=== PATIENT | male | born 1970 | race Hispanic/Latino ===

== ENCOUNTER 2020-07-19 07:31 | Emergency (ER) | payer SELFPAY ==
[2020-07-19] MEDS ORDERED: SODIUM CHLORIDE 0.9% 1000 ML 1,000 ML IV ONE (09:00)
[2020-07-19] MEDS ORDERED: ONDANSETRON 4 MG/2 ML INJ IV ONE (09:00)
--- NOTE | 2020-07-19 09:04 | Emergency Department Report ---
ED General Adult HPI - General Chief complaint: Nausea/Vomiting/Diarrhea Stated complaint: SICK Time Seen by Provider: 07/19/20 08:52 Source: patient Mode of arrival: Ambulatory Limitations: No Limitations - History of Present Illness Initial comments: Patient is 50 years old male with no significant past medical history except for high blood pressure. Patient presented to the ER complaining of generalized weakness, nausea, vomiting and diarrhea for the last 3 days. Patient also complaining of cough runny nose and congestion. Patient denied any contact with COVID-19 patient. Patient denied fever but stated that he is having chills. -: days(s) - Related Data Previous Rx's Medication Instructions Recorded Last Taken Type Acetaminophen/Codeine [Tylenol #3] 1 tab PO Q6H PRN #20 tab 04/26/15 Unknown Rx Clindamycin [Clindamycin CAP] 300 mg PO Q6HR #80 capsule 04/26/15 Unknown Rx Ibuprofen [Motrin] 600 mg PO Q8H PRN #50 tablet 04/26/15 Unknown Rx Penicillin Vk [Veetids TAB] 500 mg PO QID #40 tablet 04/26/15 Unknown Rx Acetaminophen/Codeine [Tylenol #3] 1 tab PO Q6H PRN #20 tab 06/08/15 Unknown Rx Clindamycin [Clindamycin CAP] 300 mg PO Q6H 10 Days capsule 06/08/15 Unknown Rx Ibuprofen [Motrin 600 MG tab] 600 mg PO Q8H PRN #30 tablet 06/08/15 Unknown Rx Penicillin Vk [Veetids TAB] 500 mg PO QID 10 Days tablet 06/08/15 Unknown Rx Allergies Allergy/AdvReac Type Severity Reaction Status Date / Time clindamycin Allergy Unknown Verified 07/19/20 07:34 ED Review of Systems ROS: Stated complaint: SICK Other details as noted in HPI Comment: All other systems reviewed and negative Constitutional: chills. denies: fever Respiratory: cough. denies: orthopnea, shortness of breath, SOB with exertion, SOB at rest, stridor, wheezing Cardiovascular: denies: chest pain, palpitations Gastrointestinal: nausea, vomiting, diarrhea. denies: abdominal pain, constipation, hematemesis, melena, hematochezia Musculoskeletal: denies: back pain Neurological: weakness. denies: headache, numbness, paresthesias, confusion, abnormal gait ED Past Medical Hx - Past Medical History Hx Hypertension: Yes Hx Psychiatric Treatment: Yes - Surgical History Additional Surgical History: TONSILLECTOMY - Social History Smoking Status: Current Every Day Smoker Substance Use Type: None - Medications Home Medications: Home Medications Medication Instructions Recorded Confirmed Last Taken Type Acetaminophen/Codeine [Tylenol #3] 1 tab PO Q6H PRN #20 tab 04/26/15 Unknown Rx Clindamycin [Clindamycin CAP] 300 mg PO Q6HR #80 capsule 04/26/15 Unknown Rx Ibuprofen [Motrin] 600 mg PO Q8H PRN #50 tablet 04/26/15 Unknown Rx Penicillin Vk [Veetids TAB] 500 mg PO QID #40 tablet 04/26/15 Unknown Rx Acetaminophen/Codeine [Tylenol #3] 1 tab PO Q6H PRN #20 tab 06/08/15 Unknown Rx Clindamycin [Clindamycin CAP] 300 mg PO Q6H 10 Days capsule 06/08/15 Unknown Rx Ibuprofen [Motrin 600 MG tab] 600 mg PO Q8H PRN #30 tablet 06/08/15 Unknown Rx Penicillin Vk [Veetids TAB] 500 mg PO QID 10 Days tablet 06/08/15 Unknown Rx ED Physical Exam - General Limitations: No Limitations General appearance: alert, in no apparent distress - Head Head exam: Present: atraumatic, normocephalic, normal inspection - ENT ENT exam: Present: mucous membranes dry - Respiratory Respiratory exam: Present: normal lung sounds bilaterally - Cardiovascular Cardiovascular Exam: Present: regular rate, normal rhythm, normal heart sounds - GI/Abdominal GI/Abdominal exam: Present: soft, normal bowel sounds. Absent: distended, tenderness, guarding, rebound, rigid, mass, bruit, pulsatile mass, hernia - Extremities Exam Extremities exam: Present: normal inspection, full ROM - Back Exam Back exam: Present: normal inspection, full ROM. Absent: CVA tenderness (R), CVA tenderness (L) - Neurological Exam Neurological exam: Present: alert, oriented X3, CN II-XII intact - Psychiatric Psychiatric exam: Present: normal mood - Skin Skin exam: Present: warm, dry, intact ED Course Vital Signs 07/19/20 07:37 Temperature 97.9 F Pulse Rate 93 H Respiratory 18 Rate Blood Pressure 167/108 O2 Sat by Pulse 97 Oximetry ED Medical Decision Making - Lab Data Result diagrams: 07/19/20 Unknown 07/19/20 Unknown - Radiology Data Radiology results: report reviewed - Medical Decision Making Patient is 50 years old male with no significant past medical history except for high blood pressure. Patient presented to the ER complaining of generalized weakness, nausea, vomiting and diarrhea for the last 3 days. Patient also complaining of cough runny nose and congestion. Patient denied any contact with COVID-19 patient. Patient denied fever but stated that he is having chills. Patient received normal saline and Zofran. Patient stated that he is feeling much better. No vomiting observed in the ER. Labs reviewed and is unremarkable. Chest x-ray is negative for acute finding. Patient symptoms consistent with viral syndrome and given this pandemic time of COVID-19 patient advised to follow-up with his primary doctor or go to the health department or local resources for COVID-19 testing. Patient also advised to return to the ER if he develop any new symptoms. Critical care attestation.: If time is entered above; I have spent that time in minutes in the direct care of this critically ill patient, excluding procedure time. ED Disposition Clinical Impression: Viral syndrome, Dehydration, Acute nausea with nonbilious vomiting Disposition: DC-01 TO HOME OR SELFCARE Is pt being admited?: No Condition: Stable Instructions: Nausea and Vomiting, Adult Referrals: PRIMARY CARE,MD [Primary Care Provider] - 3-5 Days
--- NOTE | 2020-07-19 09:36 | XRay Report ---
CHEST 1 VIEW INDICATION: cough. COMPARISON: None. FINDINGS: Support devices: None. Heart: Normal. Lungs/Pleura: No acute pulmonary or pleural findings. IMPRESSION: 1. No acute findings. Signer Name: Benjamin Mckeon MD Signed: 07/19/2020 9:32 AM Workstation Name: [id number]
[2020-07-19 10:07] LABS: Basophils % (Auto) 0.3 % (0.0-1.8); Eosinophils % (Auto) 0.1 % (0.0-4.3); Hematocrit 47.2 % (35.5-45.6); Hemoglobin 15.9 gm/dl (11.8-15.2); Lymphocytes # (Auto) 1.3 K/mm3 (1.2-5.4); Lymphocytes % (Auto) 13.1 % (13.4-35.0); Mean Corpuscular HGB Conc 34 % (32-34); Mean Corpuscular Volume 98 fl (84-94); Platelet Count 204 K/mm3 (140-440); Red Blood Count 4.83 M/mm3 (3.65-5.03); Red Cell Distribution Width 14.5 % (13.2-15.2)
[2020-07-19 10:32] LABS: Alanine Aminotransferase 39 units/L (7-56); Albumin 4.7 g/dL (3.9-5); Blood Urea Nitrogen 11 mg/dL (9-20); Calcium 9.3 mg/dL (8.4-10.2); Hemolysis Index 18
[2020-07-19 10:43] LABS: BUN/Creatinine Ratio 18; Bilirubin,Direct < 0.2 mg/dL (0-0.2)
[2020-07-19 13:10] VITALS: BP 154/100
== END 2020-07-19 13:10 | disposition home or self-care (01) ==
LOC: ED 07:31
DX: E86.0 Dehydration (principal); B34.9 Viral infection, unspecified; R11.2 Nausea with vomiting, unspecified; I10 Essential (primary) hypertension; F17.200 Nicotine dependence, unspecified, uncomplicated; Z88.8 Allergy status to other drugs, medicaments and biological substances; Z79.899 Other long term (current) drug therapy; Z90.49 Acquired absence of other specified parts of digestive tract
CPT/HCPCS: 36415; 71045; 80048; 80076; 83690; 85025; 96361; 96374; 99284; J2405

== ENCOUNTER 2020-07-27 18:18 | Emergency (ER) | payer SELFPAY ==
--- NOTE | 2020-07-27 18:40 | Event Note ---
ED Screening Note Date of service: 07/27/20 Time: 18:39 ED Screening Note: This 50-year-old male presents the ED complaining of nausea and vomiting x1 week. Patient states he has not been able to eat or drink anything past 2 days. He denies abdominal pain Past medical history: Hypertension, hypoglycemia This initial assessment/diagnostic orders/clinical plan/treatment(s) is/are subject to change based on patients health status, clinical progression and re- assessment by fellow clinical providers in the ED. Further treatment and workup at subsequent clinical providers discretion. Patient/guardian urged not to elope from the ED as their condition may be serious if not clinically assessed and managed. Initial orders include: CBC, CMP, lipase
[2020-07-27 19:09] LABS: Basophils % (Auto) 0.4 % (0.0-1.8); Eosinophils # (Auto) 0.1 K/mm3 (0.0-0.4); Eosinophils % (Auto) 1.1 % (0.0-4.3); Hematocrit 48.6 % (35.5-45.6); Hemoglobin 16.2 gm/dl (11.8-15.2); Lymphocytes # (Auto) 3.2 K/mm3 (1.2-5.4); Lymphocytes % (Auto) 30.1 % (13.4-35.0); Mean Corpuscular HGB Conc 33 % (32-34); Mean Corpuscular Volume 99 fl (84-94); Monocytes # (Auto) 1.1 K/mm3 (0.0-0.8); Monocytes % (Auto) 10.6 % (0.0-7.3); Platelet Count 180 K/mm3 (140-440); Red Blood Count 4.91 M/mm3 (3.65-5.03); Red Cell Distribution Width 14.3 % (13.2-15.2)
[2020-07-27 19:14] LABS: Alanine Aminotransferase 17 units/L (7-56); Albumin 4.8 g/dL (3.9-5); Blood Urea Nitrogen 7 mg/dL (9-20); Calcium 9.2 mg/dL (8.4-10.2); Hemolysis Index 19
[2020-07-27 19:20] LABS: BUN/Creatinine Ratio 12
[2020-07-27] MEDS ORDERED: ONDANSETRON 4 MG ODT TAB PO ONE (19:23)
[2020-07-27] MEDS ORDERED: FAMOTIDINE 20 MG TAB PO ONE (19:23)
[2020-07-27 19:24] LABS: Bacteria,Urine 1+ /HPF (Negative); Bilirubin,Urine NEG (Negative); Blood,Urine NEG (Negative); Color,Urine Colorless (Yellow); Protein,Urine <15 mg/dL mg/dL (Negative); Urobilinogen,Urine < 2.0 mg/dL (<2.0)
[2020-07-27 19:27] LABS: WBC,Urine < 1.0 /HPF (0.0-6.0)
[2020-07-27] MEDS ORDERED: SODIUM CHLORIDE 0.9% 1000 ML 1,000 ML IV ONE (19:42)
[2020-07-27] MEDS ORDERED: FAMOTIDINE 20 MG/2 ML INJ IV ONE (19:42)
[2020-07-27] MEDS ORDERED: ONDANSETRON 4 MG/2 ML INJ IV ONE (19:42)
--- NOTE | 2020-07-27 20:58 | Emergency Department Report ---
ED N/V/D HPI - General Chief complaint: Nausea/Vomiting/Diarrhea Stated complaint: FLU SYMPTOMS Source: patient Mode of arrival: Ambulatory Limitations: No Limitations - History of Present Illness Initial comments: Patient is a 50 yo WM with a h/o HTN who presents to the ED with c/o acute onset persistent intermittent nausea, vomiting, diarrhea and mild diffuse abdominal pain for the last 1 week. Patient states that he has not been able to keep anything down especially in the last 2 days. Patient states that these symptoms have been persistent and worse in the last 12 hours. Patient states that he has had upto 4 episodes of nausea, vomiting and diarrhea in the last 8 hours. Patient denies dyspnea, chest pain, cough, sore throat, dysuria, hematemesis, hemoptysis, change in vision, syncope, urinary urgency and frequency, fever and hills or testicular pain and headache MD complaint: nausea, vomiting, diarrhea, abdominal pain -: Sudden, week(s) (1) Description of Vomiting: food contents Description of Diarrhea: water Associated Abdominal Pain: Yes (mildly due to vomiting) Location: diffuse Radiation: none Severity: moderate Pain Scale: 1 Quality: aching, dull Consistency: intermittent Improves with: none Worsens with: eating, vomiting Context: possible food poisoning Associated Symptoms: denies other symptoms, nausea/vomiting. denies: myalgias, chest pain, cough, diaphoresis, fever/chills, headaches, loss of appetite, malaise, rash, dysuria, shortness of breath, syncope - Related Data Previous Rx's Medication Instructions Recorded Last Taken Type Acetaminophen/Codeine [Tylenol #3] 1 tab PO Q6H PRN #20 tab 04/26/15 Unknown Rx Clindamycin [Clindamycin CAP] 300 mg PO Q6HR #80 capsule 04/26/15 Unknown Rx Ibuprofen [Motrin] 600 mg PO Q8H PRN #50 tablet 04/26/15 Unknown Rx Penicillin Vk [Veetids TAB] 500 mg PO QID #40 tablet 04/26/15 Unknown Rx Acetaminophen/Codeine [Tylenol #3] 1 tab PO Q6H PRN #20 tab 06/08/15 Unknown Rx Clindamycin [Clindamycin CAP] 300 mg PO Q6H 10 Days capsule 06/08/15 Unknown Rx Ibuprofen [Motrin 600 MG tab] 600 mg PO Q8H PRN #30 tablet 06/08/15 Unknown Rx Penicillin Vk [Veetids TAB] 500 mg PO QID 10 Days tablet 06/08/15 Unknown Rx lisinopriL [Zestril TAB] 40 mg PO QDAY #30 tablet 07/19/20 Unknown Rx Dicyclomine [Bentyl] 20 mg PO Q6H PRN #24 tablet 07/27/20 Unknown Rx Famotidine [Pepcid] 20 mg PO BID #30 tablet 07/27/20 Unknown Rx Ondansetron [Zofran ODT TAB] 4 mg PO Q6HR PRN #20 tab.rapdis 07/27/20 Unknown Rx Allergies Allergy/AdvReac Type Severity Reaction Status Date / Time clindamycin Allergy Unknown Verified 07/27/20 18:33 ED Review of Systems ROS: Stated complaint: FLU SYMPTOMS Other details as noted in HPI Constitutional: denies: chills, fever Eyes: denies: eye pain, eye discharge, vision change ENT: denies: ear pain, throat pain Respiratory: denies: cough, shortness of breath, wheezing Cardiovascular: denies: chest pain, palpitations Endocrine: no symptoms reported Gastrointestinal: abdominal pain, nausea, vomiting, diarrhea Genitourinary: denies: urgency, dysuria Musculoskeletal: denies: back pain, joint swelling, arthralgia Skin: denies: rash, lesions Neurological: denies: headache, weakness, paresthesias Psychiatric: denies: anxiety, depression Hematological/Lymphatic: denies: easy bleeding, easy bruising ED Past Medical Hx - Past Medical History Hx Hypertension: Yes Hx Psychiatric Treatment: No - Surgical History Additional Surgical History: TONSILLECTOMY - Social History Smoking Status: Current Every Day Smoker Substance Use Type: None - Medications Home Medications: Home Medications Medication Instructions Recorded Confirmed Last Taken Type Acetaminophen/Codeine [Tylenol #3] 1 tab PO Q6H PRN #20 tab 04/26/15 Unknown Rx Clindamycin [Clindamycin CAP] 300 mg PO Q6HR #80 capsule 04/26/15 Unknown Rx Ibuprofen [Motrin] 600 mg PO Q8H PRN #50 tablet 04/26/15 Unknown Rx Penicillin Vk [Veetids TAB] 500 mg PO QID #40 tablet 04/26/15 Unknown Rx Acetaminophen/Codeine [Tylenol #3] 1 tab PO Q6H PRN #20 tab 06/08/15 Unknown Rx Clindamycin [Clindamycin CAP] 300 mg PO Q6H 10 Days capsule 06/08/15 Unknown Rx Ibuprofen [Motrin 600 MG tab] 600 mg PO Q8H PRN #30 tablet 06/08/15 Unknown Rx Penicillin Vk [Veetids TAB] 500 mg PO QID 10 Days tablet 06/08/15 Unknown Rx lisinopriL [Zestril TAB] 40 mg PO QDAY #30 tablet 07/19/20 Unknown Rx Dicyclomine [Bentyl] 20 mg PO Q6H PRN #24 tablet 07/27/20 Unknown Rx Famotidine [Pepcid] 20 mg PO BID #30 tablet 07/27/20 Unknown Rx Ondansetron [Zofran ODT TAB] 4 mg PO Q6HR PRN #20 tab.rapdis 07/27/20 Unknown Rx ED Physical Exam - General Limitations: No Limitations General appearance: alert, in no apparent distress - Head Head exam: Present: atraumatic, normocephalic, normal inspection - Eye Eye exam: Present: normal appearance, PERRL, EOMI Pupils: Present: normal accommodation - ENT ENT exam: Present: normal exam, normal orophraynx, mucous membranes moist, TM's normal bilaterally, normal external ear exam - Neck Neck exam: Present: normal inspection, full ROM - Respiratory Respiratory exam: Present: normal lung sounds bilaterally. Absent: respiratory distress, wheezes, rales, rhonchi, stridor, accessory muscle use, prolonged expiratory - Cardiovascular Cardiovascular Exam: Present: normal rhythm, tachycardia, normal heart sounds. Absent: systolic murmur, diastolic murmur, rubs, gallop - GI/Abdominal GI/Abdominal exam: Present: soft, normal bowel sounds. Absent: distended, tenderness, rebound, rigid, hyperactive bowel sounds, hypoactive bowel sounds, organomegaly, mass - Extremities Exam Extremities exam: Present: normal inspection, full ROM, normal capillary refill - Back Exam Back exam: Present: normal inspection, full ROM. Absent: tenderness, CVA tenderness (R), CVA tenderness (L), muscle spasm, paraspinal tenderness, verte bral tenderness - Neurological Exam Neurological exam: Present: alert, oriented X3, CN II-XII intact, normal gait, reflexes normal - Psychiatric Psychiatric exam: Present: normal affect, normal mood - Skin Skin exam: Present: warm, dry, intact, normal color. Absent: rash ED Course Vital Signs 07/27/20 18:35 Temperature 97.5 F L Pulse Rate 101 H Respiratory 20 Rate Blood Pressure 128/84 O2 Sat by Pulse 99 Oximetry ED Medical Decision Making - Lab Data Result diagrams: 07/27/20 18:45 07/27/20 18:45 - Medical Decision Making This is a 50 yo WM with a h/o HTN who presents to the ED with c/o acute onset persistent intermittent nausea, vomiting, diarrhea and mild diffuse abdominal pain for the last 1 week. Patient states that he has not been able to keep anything down especially in the last 2 days. Patient states that these symptoms have been persistent and worse in the last 12 hours. Patient states that he has had upto 4 episodes of nausea, vomiting and diarrhea in the last 8 hours. In the ED, patient is alert and oriented x 3 and is in no acute distress. Lab test results were reviewed and are all nonactionable. Patient was treated for nausea and vomiting in the ED, and also received normal saline 1 Litre IV bolus x 1. On reevaluation, patient passed oral fluid challenge in the ED, and tachycardia also resolved. Patient was discharged home on medications and advised to maintain a clear liquid diet for 12-24 hours. Patient was also given antiemetic and antacid medication prescriptions and advised to follow up with his PCP in 5- 7 days for reevaluation, or return to the ED immediately if symptoms get worse. - Differential Diagnosis Gastroenteritis; GERD; Gastritis; Dehydration; Viral syndrome Critical care attestation.: If time is entered above; I have spent that time in minutes in the direct care of this critically ill patient, excluding procedure time. ED Disposition Clinical Impression: Nausea, vomiting and diarrhea, Nonspecific syndrome suggestive of viral illness Disposition: DC-01 TO HOME OR SELFCARE Is pt being admited?: No Does the pt Need Aspirin: No Condition: Stable Instructions: Nausea and Vomiting, Adult, [id number], Diarrhea, Adult, Easy -to-Read, Viral Illness, Adult Additional Instructions: All lab test results are nonactionable. Therefore maintain a clear liquid diet for 12-24 hours, take medications as advised, drink plenty of fluids and follow up with your Primary care Physician in 5-7 days for reevaluation. Return to the ED immediately if symptoms get worse. Prescriptions: Dicyclomine [Bentyl] 20 mg PO Q6H PRN #24 tablet PRN Reason: Abdominal pain Famotidine [Pepcid] 20 mg PO BID #30 tablet Ondansetron [Zofran ODT TAB] 4 mg PO Q6HR PRN #20 tab.rapdis PRN Reason: Nausea And Vomiting Referrals: [facility] [Provider Group] - 3-5 Days Time of Disposition: 20:56 Print Language: MONTSERRATIAN
[2020-07-27 22:28] VITALS: BP 124/79
== END 2020-07-27 22:27 | disposition home or self-care (01) ==
LOC: ED 18:18
DX: B34.9 Viral infection, unspecified (principal); I10 Essential (primary) hypertension; F17.200 Nicotine dependence, unspecified, uncomplicated; Z98.890 Other specified postprocedural states; Z79.899 Other long term (current) drug therapy; Z79.2 Long term (current) use of antibiotics; Z88.8 Allergy status to other drugs, medicaments and biological substances
CPT/HCPCS: 36415; 80053; 81001; 83690; 85025; 96361; 96374; 96375; 99283; J2405; J7030

== ENCOUNTER 2020-12-24 09:39 | Emergency (ER) | payer SELFPAY ==
[2020-12-24] MEDS ORDERED: ASPIRIN 325 MG TAB PO ONE (10:24)
--- NOTE | 2020-12-24 10:40 | Emergency Department Report ---
Blank Doc - Documentation Documentation: 50-year-old male who presents with multiple episodes of syncope with shortness of breath and chest pains. Denies any head injuries or trauma. 1- This initial assessment/diagnostic orders/clinical plan/ treatment(s) is/are subject to change based on pt's health status, clinical progression and re- assessment by fellow clinical providers in the ED. Further treatment and workup at subsequent clinical provers discretion. Patient/guardians urged not to elope from ED as their condition may be serious if not clinically assessed and managed. 2-cardiac work-up 3-CT of head
--- NOTE | 2020-12-24 11:15 | XRay Report ---
CHEST 2 VIEWS INDICATION / CLINICAL INFORMATION: chest pain. COMPARISON: 07/19/2020 FINDINGS: SUPPORT DEVICES: None. HEART / MEDIASTINUM: Stable. LUNGS / PLEURA: No significant pulmonary or pleural abnormality. No pneumothorax. ADDITIONAL FINDINGS: No significant additional findings. IMPRESSION: 1. No acute findings. Signer Name: Hadley Miguel MD Signed: 12/24/2020 11:11 AM Workstation Name: [id number]
[2020-12-24 12:04] LABS: Basophils % (Auto) 0.4 % (0.0-1.8); Eosinophils # (Auto) 0.2 K/mm3 (0.0-0.4); Eosinophils % (Auto) 1.5 % (0.0-4.3); Hematocrit 41.3 % (35.5-45.6); Hemoglobin 14.1 gm/dl (11.8-15.2); Lymphocytes # (Auto) 1.3 K/mm3 (1.2-5.4); Lymphocytes % (Auto) 11.7 % (13.4-35.0); Mean Corpuscular HGB Conc 34 % (32-34); Mean Corpuscular Volume 102 fl (84-94); Monocytes # (Auto) 1.5 K/mm3 (0.0-0.8); Monocytes % (Auto) 13.7 % (0.0-7.3); Platelet Count 144 K/mm3 (140-440); Red Blood Count 4.03 M/mm3 (3.65-5.03); Red Cell Distribution Width 12.7 % (13.2-15.2)
[2020-12-24 12:13] LABS: Hemolysis Index 207; INR 0.84 (0.87-1.13); Partial Thromboplastin Time 25.8 Sec. (24.2-36.6)
[2020-12-24 12:18] LABS: BUN/Creatinine Ratio TNR; Blood Urea Nitrogen TNR mg/dL (9-20)
[2020-12-24 12:19] LABS: Alanine Aminotransferase TNR units/L (7-56); Calcium TNR mg/dL (8.4-10.2)
[2020-12-24 12:20] LABS: Albumin TNR g/dL (3.9-5)
[2020-12-24 13:22] LABS: Alanine Aminotransferase 60 units/L (7-56); Albumin 4.7 g/dL (3.9-5); BUN/Creatinine Ratio 19; Blood Urea Nitrogen 15 mg/dL (9-20); Calcium 9.1 mg/dL (8.4-10.2); Hemolysis Index 29
--- NOTE | 2020-12-24 18:20 | Cat Scan Report ---
CT head/brain wo con INDICATION / CLINICAL INFORMATION: 50 years Male; syncope. TECHNIQUE: Routine CT head without contrast. All CT scans at this location are performed using CT dos e reduction for ALARA by means of automated exposure control. COMPARISON: None. FINDINGS: BRAIN / INTRACRANIAL CONTENTS: The motion degrades the image quality despite repeat imaging. 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 The ventricular system is within upper limits of normal in size and configuration. There is n o clear CT evidence of acute intracranial hemorrhage or significant mass effect. ORBITS: No significant abnormality of visualized orbits. SINUSES / MASTOIDS: There is notable irregularity of the visualized nasal bones which appears to be r elated to previous trauma. The visualized paranasal sinuses are pneumatized. CRANIOCERVICAL JUNCTION: No significant abnormality. ADDITIONAL FINDINGS: None. IMPRESSION: 1. There is no clear CT evidence of acute intracranial process. Signer Name: John Joaquin MD Signed: 12/24/2020 6:16 PM Workstation Name: [id number]
[2020-12-25] MEDS ORDERED: ACETAMINOPHEN 500 MG TAB PO ONE (02:53)
[2020-12-25] MEDS ORDERED: oxyCODONE /ACETAMINOPHEN 5-325MG TAB PO ONE (03:53)
--- NOTE | 2020-12-25 03:59 | Emergency Department Report ---
ED Chest Pain HPI - General Chief Complaint: Chest Pain Stated Complaint: JOINT PAIN/MUSCEL/CHEST CONGESTION PUI?: No Time Seen by Provider: 12/24/20 10:28 Source: patient Mode of arrival: Ambulatory Limitations: No Limitations - History of Present Illness Initial Comments: Chief complaint: Chest pain HPI: Is a 50-year-old male with history of hypertension and tobacco dependence who presents with chest pain and left arm pain for the past 3 days. Patient had syncopal episode when standing up from bed 3 days ago. He refused to be evaluated in hospital. However when the symptoms recurred he became concerned. He recently awakened with chest burning and left arm tingling nerve type pain. Has subsided. Not associated with eating. No associated with exertion. He has had cough for the past 3 weeks productive of sputum. He denies fever. No shortness of breath. Next He is currently chest pain-free. However he states that he has chronic neck pain. He requests 1 dose of pain medicine at this time. No family history of heart disease. MD Complaint: chest pain -: Gradual, days(s) (3 days ago) Onset: during rest Pain Location: substernal Pain Radiation: none Severity: moderate Severity scale (0 -10): 8 Quality: other (Central burning chest pain) Consistency: intermittent, now resolved Improves With: nothing Worsens With: nothing Other Symptoms: cough Treatments Prior to Arrival: none - Related Data Previous Rx's Medication Instructions Recorded Last Taken Type Acetaminophen/Codeine [Tylenol #3] 1 tab PO Q6H PRN #20 tab 04/26/15 Unknown Rx Clindamycin [Clindamycin CAP] 300 mg PO Q6HR #80 capsule 04/26/15 Unknown Rx Ibuprofen [Motrin] 600 mg PO Q8H PRN #50 tablet 04/26/15 Unknown Rx Penicillin Vk [Veetids TAB] 500 mg PO QID #40 tablet 04/26/15 Unknown Rx Acetaminophen/Codeine [Tylenol #3] 1 tab PO Q6H PRN #20 tab 06/08/15 Unknown Rx Clindamycin [Clindamycin CAP] 300 mg PO Q6H 10 Days capsule 06/08/15 Unknown Rx Ibuprofen [Motrin 600 MG tab] 600 mg PO Q8H PRN #30 tablet 06/08/15 Unknown Rx Penicillin Vk [Veetids TAB] 500 mg PO QID 10 Days tablet 06/08/15 Unknown Rx lisinopriL [Zestril TAB] 40 mg PO QDAY #30 tablet 07/19/20 Unknown Rx Dicyclomine [Bentyl] 20 mg PO Q6H PRN #24 tablet 07/27/20 Unknown Rx Famotidine [Pepcid] 20 mg PO BID #30 tablet 07/27/20 Unknown Rx Ondansetron [Zofran ODT TAB] 4 mg PO Q6HR PRN #20 tab.rapdis 07/27/20 Unknown Rx Amoxicillin [Amoxicillin CAP] 250 mg PO TID 7 Days #21 capsule 12/25/20 Unknown Rx Famotidine [Acid-Pep] 20 mg PO BID 7 Days #14 tablet 12/25/20 Unknown Rx Allergies Allergy/AdvReac Type Severity Reaction Status Date / Time clindamycin Allergy Unknown Verified 12/24/20 10:23 Heart Score - HEART Score History: Slightly suspicious EKG: Normal Age: 45-65 Risk factors: 1-2 risk factors Troponin: < normal limit HEART Score: 2 - EKG Read Time Time EKG Completed: 10:25 EKG Read Time: 10:28 ED Review of Systems ROS: Stated complaint: JOINT PAIN/MUSCEL/CHEST CONGESTION Other details as noted in HPI Comment: All other systems reviewed and negative Constitutional: denies: chills, fever, malaise Respiratory: cough. denies: shortness of breath Cardiovascular: chest pain Gastrointestinal: denies: abdominal pain, vomiting ED Past Medical Hx - Past Medical History Previous Medical History?: Yes Hx Hypertension: Yes Hx Psychiatric Treatment: No - Surgical History Past Surgical History?: Yes Additional Surgical History: TONSILLECTOMY - Family History Family history: diabetes - Social History Smoking Status: Current Every Day Smoker Substance Use Type: None - Medications Home Medications: Home Medications Medication Instructions Recorded Confirmed Last Taken Type Acetaminophen/Codeine [Tylenol #3] 1 tab PO Q6H PRN #20 tab 04/26/15 Unknown Rx Clindamycin [Clindamycin CAP] 300 mg PO Q6HR #80 capsule 04/26/15 Unknown Rx Ibuprofen [Motrin] 600 mg PO Q8H PRN #50 tablet 04/26/15 Unknown Rx Penicillin Vk [Veetids TAB] 500 mg PO QID #40 tablet 04/26/15 Unknown Rx Acetaminophen/Codeine [Tylenol #3] 1 tab PO Q6H PRN #20 tab 06/08/15 Unknown Rx Clindamycin [Clindamycin CAP] 300 mg PO Q6H 10 Days capsule 06/08/15 Unknown Rx Ibuprofen [Motrin 600 MG tab] 600 mg PO Q8H PRN #30 tablet 06/08/15 Unknown Rx Penicillin Vk [Veetids TAB] 500 mg PO QID 10 Days tablet 06/08/15 Unknown Rx lisinopriL [Zestril TAB] 40 mg PO QDAY #30 tablet 07/19/20 Unknown Rx Dicyclomine [Bentyl] 20 mg PO Q6H PRN #24 tablet 07/27/20 Unknown Rx Famotidine [Pepcid] 20 mg PO BID #30 tablet 07/27/20 Unknown Rx Ondansetron [Zofran ODT TAB] 4 mg PO Q6HR PRN #20 tab.rapdis 07/27/20 Unknown Rx Amoxicillin [Amoxicillin CAP] 250 mg PO TID 7 Days #21 capsule 12/25/20 Unknown Rx Famotidine [Acid-Pep] 20 mg PO BID 7 Days #14 tablet 12/25/20 Unknown Rx ED Physical Exam - General Limitations: No Limitations General appearance: alert, in no apparent distress - Head Head exam: Present: atraumatic, normocephalic - Eye Eye exam: Present: normal appearance - ENT ENT exam: Present: mucous membranes moist - Neck Neck exam: Present: normal inspection, full ROM - Respiratory Respiratory exam: Present: normal lung sounds bilaterally. Absent: respiratory distress, wheezes, rales, rhonchi - Cardiovascular Cardiovascular Exam: Present: regular rate, normal rhythm, normal heart sounds. Absent: systolic murmur, diastolic murmur, rubs, gallop - GI/Abdominal GI/Abdominal exam: Present: soft, normal bowel sounds. Absent: distended, tenderness, guarding, rebound - Rectal Rectal exam: Present: deferred - Extremities Exam Extremities exam: Present: normal inspection - Neurological Exam Neurological exam: Present: alert, oriented X3 - Psychiatric Psychiatric exam: Present: normal affect, normal mood - Skin Skin exam: Present: warm, dry, intact, normal color. Absent: rash ED Course Vital Signs 12/24/20 12/25/20 12/25/20 10:18 03:33 03:34 Temperature 98.8 F Pulse Rate 100 H 73 67 Respiratory 12 15 13 Rate Blood Pressure 115/81 158/95 O2 Sat by Pulse 98 Oximetry 12/25/20 12/25/20 12/25/20 03:35 03:37 03:39 Temperature Pulse Rate 72 66 71 Respiratory 11 L 14 12 Rate Blood Pressure 158/95 158/95 158/95 O2 Sat by Pulse 100 100 Oximetry 12/25/20 12/25/20 12/25/20 03:41 03:43 03:46 Temperature 98.3 F Pulse Rate 69 Respiratory 11 L 18 Rate Blood Pressure 158/95 O2 Sat by Pulse 100 98 Oximetry ED Medical Decision Making - Lab Data Result diagrams: 12/24/20 11:14 12/24/20 12:49 - EKG Data -: EKG Interpreted by Me EKG shows normal: sinus rhythm, axis, intervals, QRS complexes, ST-T waves Rate: normal - EKG Data Interpretation: normal EKG 12/25/20 03:56 EKG obtained 1025 EKG interpreted by ri Normal sinus rhythm normal rate normal axis normal intervals no ST elevation no ST-T signs of ischemia normal EKG - Radiology Data Radiology results: report reviewed CT head: No evidence of acute intracranial process according radiology impression Chest 2 views: No acute findings - Medical Decision Making Vital Signs - 24 hr 12/24/20 12/25/20 12/25/20 10:18 03:33 03:34 Temperature 98.8 F Pulse Rate 100 H 73 67 Respiratory 12 15 13 Rate Blood Pressure 115/81 158/95 O2 Sat by Pulse 98 Oximetry 12/25/20 12/25/20 12/25/20 03:35 03:37 03:39 Temperature Pulse Rate 72 66 71 Respiratory 11 L 14 12 Rate Blood Pressure 158/95 158/95 158/95 O2 Sat by Pulse 100 100 Oximetry 12/25/20 12/25/20 12/25/20 03:41 03:43 03:46 Temperature 98.3 F Pulse Rate 69 Respiratory 11 L 18 Rate Blood Pressure 158/95 O2 Sat by Pulse 100 98 Oximetry Chest pain: Suspicious for GERD, troponin x3 -. Normal EKG. Heart score 2. Prescribed famotidine. Atypical for ACS, persistent tachycardia or persistent symptoms I do not suspect pulmonary embolism. Acute bronchitis: Antibiotics are indicated in the setting of tobacco use in 3 weeks duration of symptoms. Amoxicillin prescribed. Chronic neck pain: Patient received 1 dose of oxycodone acetaminophen in the emergency department Patient referred to garage door technician. Referral faxed to [facility]. Patient referred to outpatient medicine physician. Tobacco cessation recommended. With normal kidney function, I suspect potassium 6.0 hemolyzed. Repeat potassium not indicated in this setting. - Differential Diagnosis Acute coronary syndrome, pulmonary embolism, pneumonia, pneumothorax Critical care attestation.: If time is entered above; I have spent that time in minutes in the direct care of this critically ill patient, excluding procedure time. ED Disposition Clinical Impression: GERD (gastroesophageal reflux disease), Vasovagal episode, Acute bronchitis Disposition: TO HOME OR SELFCARE Is pt being admited?: No Does the pt Need Aspirin: No Condition: Stable Instructions: Syncope (ED), Acute Bronchitis (ED), Gastroesophageal Reflux Disease, Adult, [id number], Syncope, [id number], Nonspecific Chest Pain, Adult, [id number], Steps to Quit Smoking, [id number] Prescriptions: Famotidine [Acid-Pep] 20 mg PO BID 7 Days #14 tablet Amoxicillin [Amoxicillin CAP] 250 mg PO TID 7 Days #21 capsule Referrals: SHELBY GOOD MD [Staff Physician] - 3-5 Days PATRICIA DIEZ MD [Staff Physician] - 3-5 Days
[2020-12-25 04:58] VITALS: BP 152/95
--- NOTE | 2020-12-28 13:01 | Electrocardiograph Report ---
[facility] Test Date: 2020-12-24 Test Time: 10:25:52 Pat Name: SHERRY GREER Department: Room: Gender: M [employer]: TV : 1970 Requested By: RODRÍGUEZ ESTEBAN Order Number: [id number] Reading MD: Jorge Mahajan Measurements Intervals [place] Rate: 93 P: 20 WI: 135 QRS: 82 QRSD: 108 T: 63 QT: 343 QTc: 427 Interpretive Statements Sinus rhythm Normal ECG No previous ECG available for comparison Electronically Signed On 12-28-2020 13:01:26 EDT by Jorge Mahajan
== END 2020-12-25 04:59 | disposition home or self-care (01) ==
LOC: ED 09:39
DX: K21.9 Gastro-esophageal reflux disease without esophagitis (principal); R55 Syncope and collapse; J20.9 Acute bronchitis, unspecified; I10 Essential (primary) hypertension; F17.200 Nicotine dependence, unspecified, uncomplicated; E11.9 Type 2 diabetes mellitus without complications; Z98.890 Other specified postprocedural states; Z79.899 Other long term (current) drug therapy; Z88.1 Allergy status to other antibiotic agents
CPT/HCPCS: 36415; 70450; 71046; 80053; 83735; 84484; 85025; 85610; 85730; 93005; 99284